=== PATIENT | female | born 1970 | race Caucasian/White ===

== ENCOUNTER 2018-07-19 02:32 | Emergency (ER) | payer SELFPAY ==
[2018-07-19] MEDS ORDERED: Iopamidol 612 MG/ML 50 ML SDV IVPUSH ONE (03:02)
[2018-07-19] MEDS ORDERED: Iopamidol 612 MG/ML 100 ML Bottle IVPUSH ONE (03:02)
[2018-07-19] MEDS ORDERED: Diphtheria,Pertussis(Acell),Tetanus Vaccine 0.5 ML Syringe IM ONE (03:36)
[2018-07-19] MEDS ORDERED: Acetaminophen 325 MG Tab PO ONE (07:13)
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
--- NOTE | 2018-07-19 13:53 | CT ---
Head CT Technique: Multiple axial sections through the brain were obtained. Intravenous contrast was not utilized. Comparison: No prior intracranial imaging. Findings: Ventricles along with basal cisterns and sulci over the convexities are within normal limits for the patient's age. No abnormal parenchymal densities are seen. No evidence of intracranial hemorrhage. No midline shift or mass effect is seen. Moderate mucosal thickening is seen within the ethmoid sinus. Mucosal thickening is also seen within the frontal and sphenoid sinus as well as left maxillary sinus. No air-fluid levels are seen. No acute calvarial abnormality is seen. Small area of soft tissue injury is seen within the left upper scalp within the frontal region. Impression: 1. Sinus findings which likely represents pre-existing chronic sinusitis. 2. Minimal soft tissue injury within the upper left frontal scalp. 3. No acute intracranial abnormality is identified. Diagnostic code #2 I agree with preliminary report from [facility], finalized on 07/19/18, 4:58 AM Central Time
--- NOTE | 2018-07-19 13:54 | CT ---
CT cervical spine Technique: Multiple axial sections were obtained from above C1 inferiorly to T1. Reconstructed sagittal and coronal images were reviewed. Findings: Sinus findings are again noted which are likely chronic. Moderate disc space narrowing is noted at C4-C5 with moderate to severe disc space narrowing noted at C5-C6. Posterior osteophytes are noted at both these levels as well as anterior osteophytes. Other disc spaces are maintained. Vertebral body heights are maintained. Posterior skull base is intact. No fracture is identified. Moderate bilateral neural foraminal stenosis is noted at C5-C6. Moderate to severe left-sided neural foraminal stenosis is noted at C4-C5 with mild right-sided neural foraminal stenosis at C4-C5. Mild right-sided neural foraminal stenosis is noted at C3-C4. Other neural foramina are patent. Mild central canal stenosis is noted C5-C6. No abnormal subluxation is seen. Impression: 1. Degenerative change as noted above. Nothing acute is appreciated on CT study of the cervical spine. Diagnostic code #2 I agree with preliminary report from [facility], finalized on 07/19/18, 5:00 AM Central Time
--- NOTE | 2018-07-19 13:54 | CT ---
CT chest Technique: Multiple axial sections through the chest were obtained. Intravenous contrast was utilized. Reconstructed coronal and sagittal images were reviewed. Findings: Mediastinum and hilar regions appear within normal limits. No pericardial effusion is seen. Lungs show no acute parenchymal change. No pleural effusions or pneumothorax are seen. Bone window settings were reviewed which show a very slight rib deformity within the left ninth rib compatible with old healed fracture. No acute osseous abnormality is appreciated. Impression: 1. Incidental finding. Nothing acute is seen on CT study of the chest. Diagnostic code #2 I agree with preliminary report from [facility], finalized on 07/19/18, 5:[address] abdomen and pelvis Technique: Multiple axial sections were obtained from above the dome of the diaphragm inferiorly through the pubic symphysis. Intravenous contrast was utilized. No oral contrast has been given. Findings: Slight artifact is noted within the upper abdomen from the patient's arms. Within this limitation, no discrete abnormality is seen within the liver or within the spleen. Gallbladder contains no calcified gallstones. Adrenal glands show no nodule. Pancreas is within normal limits. Kidneys show symmetric contrast enhancement without hydronephrosis or mass. Aorta shows no aneurysm. No retroperitoneal adenopathy or mesenteric abnormalities are seen. No pelvic mass or adenopathy is seen. No free fluid or inflammatory change is seen. Bone window settings were reviewed which show slight degenerative change within the spine. No acute osseous abnormality is appreciated. Impression: 1. Incidental findings. Nothing acute is seen on CT study of the abdomen and pelvis. Diagnostic code #2 I agree with preliminary report from [facility], finalized on 07/19/18, 5:03 AM Central Time
--- NOTE | 2018-07-22 06:33 | ER ---
ADDENDUM: The patient's scalp laceration was in the frontotemporal area on the left side and was a curvilinear laceration that measured approximately 4 cm in length. There was a smaller laceration measuring less than 1 cm in length just inferior to this as well. These were all closed with zuhair. SILVIANO /[id number]
== END 2018-07-19 11:30 | disposition home or self-care (01) ==
LOC: JD.ED 02:32
DX: S01.01XA Laceration without foreign body of scalp, initial encounter (principal); S30.1XXA Contusion of abdominal wall, initial encounter; I10 Essential (primary) hypertension; M54.2 Cervicalgia; Z23 Encounter for immunization; V49.9XXA Car occupant (driver) (passenger) injured in unspecified traffic accident, initial encounter
CPT/HCPCS: 12001; 36415; 70450; 71260; 72125; 74177; 80053; 82150; 83605; 85025; 85610; 85730; 86850; 86900; 86901; 90471; 90700; 99285; A9270; G0480; Q9967; 12002; 99282